=== PATIENT | female | born 1970 | race Caucasian/White ===

== ENCOUNTER 2017-03-30 17:58 | Emergency (ER) | payer BC | END 2017-03-30 19:15 | disposition left against medical advice (07) | LOC: UCCORT 17:58 | DX: M79.646 Pain in unspecified finger(s) (principal); M25.539 Pain in unspecified wrist; Z53.21 Procedure and treatment not carried out due to patient leaving prior to being seen by health care provider ==

== ENCOUNTER 2017-07-28 15:23 | Emergency (ER) | payer BC ==
--- NOTE | 2017-07-28 15:41 | UC ---
Abdominal Pain Female HPI - HPI Summary HPI Summary: Pt presents with 24 hours RLQ pain - states heavy pressure. Pt has not taken anything for pain second to medication allergies. Pt has applied heat without relief. Pt denies fever, chills, rash. Denies CP, SOB. Pt denies nausea, vomiting. No diarrhea. No dysuria, hematuria, flank pain, back pain. Pt is s/p ablation - no menses x 10 years. Pt is status post appendectomy and cholecystecomy. Pt states also had a hernia repair. Pt has had left sided ovarian cyst Pt's medications reviewed at this visit. - History of Current Complaint Chief Complaint: UCAbdominalPain Stated Complaint: RIGHT LOWER ABD PAIN Time Seen by Provider: 07/28/17 15:36 Hx Obtained From: Patient Hx Last Menstrual Period: ablation/no menses Location: Discrete At: RLQ Radiates: No Aggravating Factor(s): Nothing Alleviating Factor(s): Nothing Associated Signs and Symptoms: Negative: Fever, Cough, Chest Pain, Back Pain, Constipation, Urinary Symptoms, Vaginal Discharge, Nausea, Vomiting Allergies/Adverse Reactions: Allergies Allergy/AdvReac Type Severity Reaction Status Date / Time Buprenorphine [From Butrans] Allergy Severe N/V Verified 07/28/17 15:36 Hydrocodone [From Vicodin] Allergy Severe SEVERE Verified 07/28/17 15:36 VOMITING Ibuprofen Allergy Severe N/V Verified 07/28/17 15:36 Oxycodone [From Percocet] Allergy Severe N/V ITCHING Verified 07/28/17 15:36 Acetaminophen [From Vicodin] Allergy Intermediate N/V Verified 07/28/17 15:36 Fentanyl Allergy Intermediate N/V Verified 07/28/17 15:36 Morphine Allergy Intermediate SOB, RASH, Verified 07/28/17 15:36 N/V doxycyclene Allergy Severe N/V Uncoded 07/28/17 15:36 adhesives Allergy Rash Uncoded 07/28/17 15:36 Home Medications: Home Medications FLUoxetine CAP* [PROzac CAP*] 20 mg PO BEDTIME 07/28/17 [History Confirmed 07/28] PMH/Surg Hx/FS Hx/Imm Hx Previously Healthy: Yes Endocrine History: Thyroid Disease Other History Of: Negative For: HIV, Hepatitis B, Hepatitis C, Anticoagulant Therapy - Surgical History Surgical History: Yes Surgery Procedure, Year, and Place: 1981 APPENDECTOMY, ABSCESSES REMOVED- [place]. 04/1986 [place]. UTERINE ABLAtION. 1997 EXPLORATORY LAP, LYSIS OF ADHESIONS RIGHT FALLOPIAN TUBE- [facility]. 1997, 1998, 1999 RIGHT FOOT SURG- [facility] [place], TOE, BONE DROP 2ND AND 3RD TOES- [place] , level 3 fussion in neck. 2007 TUBAL LIGATION, UTERINE ABLAtION-[place]. 2005 CHOLECYSTECTOMY- [place]. 10/2010 RIGHT SHOULDER- [place], [place]. 08/2011 SPINAL FUSION C5-7- [facility]. 12/2012 LEFT SHOULDER- [facility], [place], pins and screws in place right foot - Family History Known Family History: Positive: Cardiac Disease, Hypertension, Diabetes Negative: Renal Disease - Social History Occupation: Employed Full-time Lives: With Family Alcohol Use: None Substance Use Type: None Smoking Status (MU): Heavy Every Day Tobacco Smoker Type: Cigarettes Amount Used/How Often: 1 ppd Length of Time of Smoking/Using Tobacco: 20+ Have You Smoked in the Last Year: Yes - Immunization History Most Recent Influenza Vaccination: 07/2017 Most Recent Tetanus Shot: about 2013 Review of Systems Constitutional: Negative Skin: Negative Eyes: Negative ENT: Negative Cardiovascular: Negative Gastrointestinal: Abdominal Pain Genitourinary: Negative Motor: Negative Neurovascular: Negative Musculoskeletal: Negative Neurological: Negative Psychological: Negative All Other Systems Reviewed And Are Negative: Yes Physical Exam Triage Information Reviewed: Yes Appearance: Well-Appearing, No Pain Distress, Well-Nourished Vital Signs: Initial Vital Signs Temp 98.0 F 07/28/17 15:31 Pulse 84 07/28/17 15:31 Resp 17 07/28/17 15:31 BP 130/77 07/28/17 15:31 Pulse Ox 100 07/28/17 15:31 Eye Exam: Normal Eyes: Positive: Conjunctiva Clear ENT Exam: Normal ENT: Positive: Normal ENT inspection, Hearing grossly normal, Pharynx normal, TMs normal Dental Exam: Normal Neck exam: Normal Neck: Positive: Supple, Nontender, No Lymphadenopathy Respiratory Exam: Normal Respiratory: Positive: Chest non-tender, Lungs clear, Normal breath sounds, No respiratory distress, No accessory muscle use Cardiovascular Exam: Normal Cardiovascular: Positive: RRR, No Murmur, Pulses Normal Abdomen Description: Positive: No Organomegaly, Soft, Other: - + RLQ discomfort with direct palp soft + BS no guarding, no rebound Bowel Sounds: Positive: Present Musculoskeletal Exam: Normal Musculoskeletal: Positive: Strength Intact, ROM Intact Neurological Exam: Normal Neurological: Positive: Alert Psychological Exam: Normal Psychological: Positive: Normal Response To Family Skin Exam: Normal Diagnostics - Radiology No standard instances Radiology Interpretation Completed By: Radiologist - INDICATION: Right lower quadrant pain. COMPARISON: Comparison is made with a prior pelvic ultrasound from January 06, 2010. TECHNIQUE: Multiple real-time transvaginal images of the pelvis were obtained. FINDINGS: The uterus is heterogeneous in echogenicity and normal in size and shape. The uterus measured 7.4 x 2.4 x 3.8 cm. The endometrial echo measured 0.3 cm in thickness. There are nabothian cysts present. There is a hypoechoic area in the posterior body of the uterus measuring 0.9 x 0.6 x 0.9 cm in size most consistent with a small leiomyoma. The right ovary measured 3.3 x 2.5 x 2.8 cm. The left ovary measured 2.0 x 1.9 x 1.4 cm. There is vascular flow within both ovaries. There are 2 slightly prominent cysts within the right ovary most consistent with physiologic cysts measuring 2.2 x 2.3 x 2.4 and 1.4 x 0.9 x 1.5 cm. There is a 1.0 x 0.8 x 0.7 cm cyst within the left ovary. No free intraperitoneal fluid is seen. IMPRESSION : 1. SMALL LEIOMYOMA. 2. BILATERAL OVARIAN CYSTS MOST CONSISTENT WITH PHYSIOLOGIC CYSTS. _ <Electronically signed by Petar Oswald MD in [place]> 07/28/171638 Dictated By : Petar Oswald MD Dictated Date/Time: 07/28/171638 Transcribed Date/Time: 163 Copy to: [ rep ct ivnm] [ rep ct add1] [ rep ct [facility] st zip] [ rep ct fax] Accession Number: [id number] CPT: 44892 INDICATION: Right lower quadrant pain. COMPARISON: Comparison is made with a prior pelvic ultrasound from January 06, 2010. TECHNIQUE: Multiple real-time transvaginal images of the pelvis were obtained. FINDINGS: The uterus is heterogeneous in echogenicity and normal in size and shape. The uterus measured 7.4 x 2.4 x 3.8 cm. The endometrial echo measured 0.3 cm in thickness. There are nabothian cysts present. There is a hypoechoic area in the posterior body of the uterus measuring 0.9 x 0.6 x 0.9 cm in size most consistent with a small leiomyoma. The right ovary measured 3.3 x 2.5 x 2.8 cm. The left ovary measured 2.0 x 1.9 x 1.4 cm. There is vascular flow within both ovaries. There are 2 slightly prominent cysts within the right ovary most consistent with physiologic cysts measuring 2.2 x 2.3 x 2.4 and 1.4 x 0.9 x 1.5 cm. There is a 1.0 x 0.8 x 0.7 cm cyst within the left ovary. No free intraperitoneal fluid is seen. IMPRESSION : 1. SMALL LEIOMYOMA. 2. BILATERAL OVARIAN CYSTS MOST CONSISTENT WITH PHYSIOLOGIC CYSTS. _ <Electronically signed by Petar Oswald MD in [place]> 07/28/17 1639 Dictated By : Petar Oswald MD Dictated Date/Time: 07/28/17 1639 Transcribed Date/Time: 1633 Copy to: [ rep ct ivnm] [ rep ct add1] [ rep ct [facility] st zip] [ rep ct fax] Re-Evaluation - Re-Evaluation First Eval Re-Evaluation Time: 16:45 Comment: reviewed ultrasound with pt. pt with cyst - ? cause of pain. d/w pt treatment option - will check CT - pt aware no contrast and limitation. If no acute process, pt has appt tomorrow with pcp for f/u Second Eval Change: Unchanged - reviewe CT with pt no clear cause for pain d/w pt - will dsicharge home pt has pcp appt tomorrow return precautions discussed Pt comfortable and wiley greement with plan Abd Pain Female Course/Dx - Course Course Of Treatment: Pt presents with RLQ pain x 24 hours. no fever, chills. dif includes appendicitis, UTI, hernia, ovarian cyst. Will check urine, US. If neg will consider noncontract CT for ? hernia. Pt in agreement with plan - Differential Dx/Diagnosis Provider Diagnoses: abdominal pain Discharge - Discharge Plan Condition: Stable Disposition: HOME Patient Education Materials: Abdominal Pain (ED) Referrals: CALLIE Lee [Primary Care Provider] - Additional Instructions: The doctor that examined you today did not find a clear cause for your abdominal pain. the doctor thinks it is okay for your to go home. Keep your appointment as scheduled tomorrow with your doctor if you develop fevers, vomiting, uncontrolled pain or any other symptoms - it is recommended you go directly to the emergency department
--- NOTE | 2017-07-28 16:43 | RAD ---
INDICATION: Right lower quadrant pain. COMPARISON: Comparison is made with a prior pelvic ultrasound from January 06, 2010. TECHNIQUE: Multiple real-time transvaginal images of the pelvis were obtained. FINDINGS: The uterus is heterogeneous in echogenicity and normal in size and shape. The uterus measured 7.4 x 2.4 x 3.8 cm. The endometrial echo measured 0.3 cm in thickness. There are nabothian cysts present. There is a hypoechoic area in the posterior body of the uterus measuring 0.9 x 0.6 x 0.9 cm in size most consistent with a small leiomyoma. The right ovary measured 3.3 x 2.5 x 2.8 cm. The left ovary measured 2.0 x 1.9 x 1.4 cm. There is vascular flow within both ovaries. There are 2 slightly prominent cysts within the right ovary most consistent with physiologic cysts measuring 2.2 x 2.3 x 2.4 and 1.4 x 0.9 x 1.5 cm. There is a 1.0 x 0.8 x 0.7 cm cyst within the left ovary. No free intraperitoneal fluid is seen. IMPRESSION: 1. SMALL LEIOMYOMA. 2. BILATERAL OVARIAN CYSTS MOST CONSISTENT WITH PHYSIOLOGIC CYSTS.
--- NOTE | 2017-07-28 17:30 | RAD ---
INDICATION: Right lower quadrant pain, history of prior appendectomy. COMPARISON: Comparison is made with a prior CT of the abdomen and pelvis from March 05, 2012 and a prior pelvic ultrasound from July 28, 2017. TECHNIQUE: A CT scan of the abdomen and pelvis was performed without intravenous or oral contrast. Contiguous axial sections were obtained from the lung bases through the symphysis pubis. Images were reconstructed in the coronal and sagittal planes. FINDINGS: The lung bases are clear. No pleural effusion is present. The liver and spleen are normal in size without significant focal abnormality on this noncontrast study. The patient is status post cholecystectomy. The pancreas is normal in size. No ductal distention is seen. There is a small 6 x 3 mm hypodense area which is noted to be fatty density on the prior study suggestive of a lipoma which is unchanged. The adrenal glands and kidneys are normal in size. No renal calculi or hydronephrosis is seen. The aorta is normal in caliber without significant calcific plaque. No significant enlarged retroperitoneal lymph nodes are seen. The stomach, small and large bowel appear nondistended. The patient is status post appendectomy by history. There are a few scattered diverticuli within the sigmoid colon. There is no evidence for diverticulitis or colitis. No hernia is seen. The uterus is anteverted and normal in size. There is a 2.2 cm right ovarian cyst. No free intraperitoneal air or fluid is seen. No significant focal osseous abnormality is seen. IMPRESSION: 1. NO EVIDENCE FOR ACUTE FINDING OR CAUSE FOR THE PATIENT'S ABDOMINAL PAIN IS SEEN. 2. STATUS POST CHOLECYSTECTOMY AND APPENDECTOMY.
[2017-07-28 17:33] VITALS: BP 126/76
== END 2017-07-28 17:51 | disposition home or self-care (01) ==
LOC: UCCORT 15:23
DX: R10.31 Right lower quadrant pain (principal); Z88.5 Allergy status to narcotic agent; F17.210 Nicotine dependence, cigarettes, uncomplicated
CPT/HCPCS: 74176; 76830; 81003; 87086; 99212; G0463

== ENCOUNTER 2017-11-02 16:40 | Emergency (ER) | payer BC ==
--- NOTE | 2017-11-02 17:21 | UC ---
Throat Pain/Nasal Beny HPI - HPI Summary HPI Summary: 46 year old female presents with complains of fever, headache, and sore throat. - History of Current Complaint Chief Complaint: UCRespiratory Stated Complaint: COUGH,ST,DUEÑAS,EARS Time Seen by Provider: 11/02/17 17:21 Hx Obtained From: Patient Hx Last Menstrual Period: ablation/no menses Onset/Duration: Sudden Onset Severity: Moderate Cough: Productive Associated Signs & Symptoms: Positive: Dysphagia, Wheezing Related History: Seasonal Allergies - Allergies/Home Medications Allergies/Adverse Reactions: Allergies Allergy/AdvReac Type Severity Reaction Status Date / Time Buprenorphine [From Butrans] Allergy Severe N/V Verified 11/02/17 17:22 Hydrocodone [From Vicodin] Allergy Severe SEVERE Verified 11/02/17 17:22 VOMITING Ibuprofen Allergy Severe N/V Verified 11/02/17 17:22 Oxycodone [From Percocet] Allergy Severe N/V ITCHING Verified 11/02/17 17:22 Acetaminophen [From Vicodin] Allergy Intermediate N/V Verified 11/02/17 17:22 Fentanyl Allergy Intermediate N/V Verified 11/02/17 17:22 Morphine Allergy Intermediate SOB, RASH, Verified 11/02/17 17:22 N/V doxycyclene Allergy Severe N/V Uncoded 11/02/17 17:22 adhesives Allergy Rash Uncoded 11/02/17 17:22 PMH/Surg Hx/FS Hx/Imm Hx Previously Healthy: Yes Other History Of: Negative For: HIV, Hepatitis B, Hepatitis C, Anticoagulant Therapy - Surgical History Surgical History: Yes Surgery Procedure, Year, and Place: 1981 APPENDECTOMY, ABSCESSES REMOVED- [place]. 04/1986 - [place]. UTERINE ABLAtION. 1997 EXPLORATORY LAP, LYSIS OF ADHESIONS RIGHT FALLOPIAN TUBE- [facility]. 1997, 1998, 1999 RIGHT FOOT SURG- [facility] [place], TOE, BONE DROP 2ND AND 3RD TOES- [place] , level 3 fussion in neck. 2007 TUBAL LIGATION, UTERINE ABLAtION-[place]. 2005 CHOLECYSTECTOMY- [place] 10/2010 RIGHT SHOULDER- [facility], [place]. 08/2011 SPINAL FUSION C5-7- [facility]. 12/2012 LEFT SHOULDER- [facility], [place], pins and screws in place right foot - Family History Known Family History: Positive: Cardiac Disease, Hypertension, Diabetes Negative: Renal Disease - Social History Alcohol Use: None Substance Use Type: None Smoking Status (MU): Heavy Every Day Tobacco Smoker Type: Cigarettes Amount Used/How Often: 1 ppd Length of Time of Smoking/Using Tobacco: 20+ Have You Smoked in the Last Year: Yes - Immunization History Most Recent Influenza Vaccination: 07/2017 Most Recent Tetanus Shot: about 2013 Review of Systems Constitutional: Negative Skin: Negative Eyes: Negative ENT: Nasal Discharge, Sinus Congestion, Sinus Pain/Tenderness Respiratory: Negative, Cough Cardiovascular: Negative Gastrointestinal: Negative Genitourinary: Negative Motor: Negative Neurovascular: Negative Musculoskeletal: Negative Neurological: Negative Psychological: Negative All Other Systems Reviewed And Are Negative: Yes Physical Exam Triage Information Reviewed: Yes Vital Signs Reviewed: Yes Eye Exam: Normal ENT: Positive: Pharyngeal erythema, Nasal congestion, Nasal drainage, Sinus tenderness Dental Exam: Normal Neck exam: Normal Neck: Positive: 1 Respiratory: Positive: Rhonchi, Wheezing Cardiovascular Exam: Normal Abdominal Exam: Normal Musculoskeletal Exam: Normal Neurological Exam: Normal Psychological Exam: Normal Skin Exam: Normal Throat Pain/Nasal Course/Dx - Differential Dx/Diagnosis Provider Diagnoses: bronchitis Discharge - Discharge Plan Condition: Stable Disposition: HOME Prescriptions: Albuterol HFA INHALER* [Ventolin HFA Inhaler*] 1 puff INH Q6H PRN #1 mdi PRN Reason: Wheezing Azithromyxin ARLIN (NF) [Z-Arlin (Zithromax) 250 mg tabs #6] 2 tab PO .TODAY, THEN 1 DAILY #6 tab GuaiFENesin DM sugar free* [Robitussin DM sugar free*] 5 ml PO Q8H PRN #120 ml PRN Reason: Cough LoraTADine TAB(NF) [Claritin 10 MG TAB(NF)] 10 mg PO DAILY #30 tab Methylprednisolone [Medrol Dosepak 4 MG*] 4 mg PO .SEE ARLIN INSTRUCTION #21 tab Patient Education Materials: Acute Bronchitis (ED), Bronchospasm (ED) Forms: *Work Release Referrals: CALLIE Lee [Primary Care Provider] -
[2017-11-02 17:28] VITALS: BP 120/66
== END 2017-11-02 17:54 | disposition home or self-care (01) ==
LOC: UCCORT 16:40
DX: J40 Bronchitis, not specified as acute or chronic (principal); R51 Headache; Z88.8 Allergy status to other drugs, medicaments and biological substances; Z88.5 Allergy status to narcotic agent; Z88.6 Allergy status to analgesic agent; F17.210 Nicotine dependence, cigarettes, uncomplicated
CPT/HCPCS: 99212; G0463

== ENCOUNTER 2018-06-10 16:13 | Emergency (ER) | payer BC ==
[2018-06-10 16:49] VITALS: BP 121/77
--- NOTE | 2018-06-10 17:04 | UC ---
Knee Pain HPI - HPI Summary HPI Summary: 47 y/o female presents to the urgent care c/o R knee pain since January/2018 with no injury or trauma. She was seen at [facility] at that time and was Dx with R knee sprain. She had knee immobilized w/ Don-bandage for a week, but no improvement of symptom. Pain has worsen w/ time. Pain today is 8/10 specially w / walking, climbing stair and when she wakes up, localized on around knee cap w / mild swelling. She would like to see an mortgage specialist. Pt denies fever, numbness or tingling sensation, calf pain, SOB, chest pain, N/V/D. Pt w/ Hx of uterine ablation - History of Current Complaint Chief Complaint: UCLowerExtremity Stated Complaint: RIGHT KNEE PAIN Hx Obtained From: Patient Hx Last Menstrual Period: pt states not getting one d/t having an ablasion [id number] ?: No Onset/Duration: Gradual Onset, Lasting Weeks - since 01/2018 Severity Initially: Moderate Severity Currently: Moderate Pain Intensity: 8 Pain Scale Used: 0-10 Numeric Character: Sharp, Aching, Throbbing Aggravating Factor(s): Movement, Prolonged Standing Alleviating Factor(s): Rest, OTC Meds Associated Signs And Symptoms: Positive: Swelling - mild. Negative: Redness, Bruising, Fever, Weakness, Numbness, Tingling Able to Bear Weight: Yes - Risk Factors Septic Arthritis Risk Factor: Negative Gout Risk Factor: Negative - Allergies/Home Medications Allergies/Adverse Reactions: Allergies Allergy/AdvReac Type Severity Reaction Status Date / Time acetaminophen [From Vicodin] Allergy Vomiting Verified 06/10/18 16:56 buprenorphine Allergy Nausea And Verified 06/10/18 16:56 Vomiting doxycycline Allergy Nausea And Verified 06/10/18 16:56 Vomiting fentanyl Allergy Nausea And Verified 06/10/18 16:56 Vomiting hydrocodone [From Vicodin] Allergy Vomiting Verified 06/10/18 16:56 ibuprofen Allergy Nausea And Verified 06/10/18 16:56 Vomiting morphine Allergy Shortness Verified 06/10/18 16:57 of Breath oxycodone [From Percocet] Allergy Nausea And Verified 06/10/18 16:56 Vomiting Home Medications: Home Medications Aspirin TAB* [Aspirin 325 MG TAB*] 325 mg PO DAILY 06/10/18 [History Confirmed 06/10/18] PMH/Surg Hx/FS Hx/Imm Hx Previously Healthy: Yes Endocrine History: Hypothyroidism Cardiovascular History: Hypertension Psychological History: Anxiety, Depression Other History Of: Negative For: HIV, Hepatitis B, Hepatitis C, Anticoagulant Therapy - Surgical History Surgical History: Yes Surgery Procedure, Year, and Place: 1981 APPENDECTOMY, ABSCESSES REMOVED- [place]. 04/1986 - [place]. UTERINE ABLAtION. 1997 EXPLORATORY LAP, LYSIS OF ADHESIONS RIGHT FALLOPIAN TUBE- [facility]. 1997, 1998, 1999 RIGHT FOOT SURG- [facility], TOE, BONE DROP 2ND AND 3RD TOES- [place] , level 3 fussion in neck. 2007 TUBAL LIGATION, UTERINE ABLAtION-[place]. 2005 CHOLECYSTECTOMY- [place]. 10/2010 RIGHT SHOULDER- [place], [place]. 08/2011 SPINAL FUSION C5-7- [facility]. 12/2012 LEFT SHOULDER- [place], [place], pins and screws in place right foot - Family History Known Family History: Positive: Cardiac Disease, Hypertension, Diabetes Negative: Renal Disease - Social History Occupation: Employed Full-time Lives: With Family Alcohol Use: Rare Substance Use Type: None Smoking Status (MU): Heavy Every Day Tobacco Smoker Type: Cigarettes Amount Used/How Often: 1 ppd Length of Time of Smoking/Using Tobacco: since age 16 Have You Smoked in the Last Year: Yes - Immunization History Most Recent Influenza Vaccination: 07/2017 Most Recent Tetanus Shot: about 2013 Review of Systems Constitutional: Negative Skin: Negative Eyes: Negative ENT: Negative Respiratory: Negative Cardiovascular: Negative Gastrointestinal: Negative Genitourinary: Negative Motor: Negative Neurovascular: Negative Musculoskeletal: Decreased ROM - RT knee, Other: - RT knee pain Neurological: Negative Psychological: Negative Is Patient Immunocompromised?: No All Other Systems Reviewed And Are Negative: Yes Physical Exam - Summary Physical Exam Summary: Vital Signs Reviewed: Yes General: well developed, well nourished female sitting in the examining table w/ o any apparent distress Eyes: Positive: Conjunctiva Clear - PERRLA, EOMI, fundi grossly normal ENT: Positive: Normal ENT inspection, Hearing grossly normal, Pharynx normal, TMs normal Neck: Positive: Supple, Nontender, No Lymphadenopathy Respiratory: Positive: Chest nontender, Lungs clear, Normal breath sounds, No respiratory distress Cardiovascular: Positive: RRR, No Murmur, Pulses Normal, Brisk Capillary Refill Abdomen Description: Positive: Nontender, No Organomegaly, Soft. Negative: CVA Tenderness (R), CVA Tenderness (L) Bowel Sounds: Positive: Present Musculoskeletal: Positive: Strength Intact, No Edema, RT Knee: Pt is able to bear weight and ambulate w/o limping. No surface trauma, soft tissue swelling, or obvious effusion. No overlying erythema or warmth. The R knee is without obvious asymmetry or deformity when compared with the L knee. Decreased ROM of RT knee due to pain. Point tenderness to palpation of the patella, no effusion or ballottement. No tenderness over the infrapatellar tendon. Point tenderness over the lateral joint line, No tenderness over the medial or lateral tibial plateaus. No tenderness over the proximal fibular head, No tenderness, fullness or mass of the popliteal fossa. No quadriceps tenderness. No laxity of the ACL. PCL, MCL, or LCL. no collateral ligament laxity to valgus or varus stress. Negative Bobby/Drawer sign. Negative Giovanny. Distal motor and neurovascular status intact. Neurological Exam: Normal Psychological Exam: Normal Skin Exam: Normal Triage Information Reviewed: Yes Vital Signs: Initial Vital Signs Temp 99.1 F 06/10/18 16:42 Pulse 84 06/10/18 16:42 Resp 16 06/10/18 16:42 BP 121/77 06/10/18 16:42 Pulse Ox 98 06/10/18 16:42 Knee Pain Course/Dx - Course Course Of Treatment: 47 y/o female presents to the urgent care c/o R knee pain since January/2018 with no injury or trauma. She was seen at [facility] at that time and was Dx with R knee sprain. She had knee immobilized w/ Don-bandage for a week, but no improvement of symptom. Pain has worsen w/ time. Pain today is 8/10 specially w/ walking, climbing stair and when she wakes up, localized on around knee cap w/ mild swelling. She would like to see an mortgage specialist. Pt denies fever, numbness or tingling sensation, calf pain, SOB, chest pain, N/V/D. Pt w/ Hx of uterine ablation. Hx obtained. LF knee X-ray ordered. Impression:No acute osseous injury. Pt's knee immobilized w/ don bandage and continue using crutches for 1 week.Advised RICE. Avoid strenuous exercise or standing for long period of time. No Volleyball practice for 1 week. and if not improvement of symptoms to f/u with Orthopedic Dr Guzmán or your PCP in 1 week for further evaluation and treatment. Mother and PT understood and agreed with D/C instructions. - Differential Dx/Diagnosis Differential Diagnosis/HQI/PQRI: Bursitis, Fracture (Closed), Patellofemoral Syndrome, Sprain, Strain, Tendonitis Provider Diagnoses: 1- Rt knee pain. 2- Discharge - Discharge Plan Condition: Stable Disposition: HOME Referrals: Letitia Browne MD [Primary Care Provider] - Additional Instructions: 1-Please take medications as directed to alleviate pain and swelling. 2-Please apply ice, keep your knee immobilized with the splint. 3- Please f/u with Orthopedic or your PCP in 1 week is not improvement of symptoms for further evaluation and treatment. - Billing Disposition and Condition Condition: STABLE Disposition: Home
--- NOTE | 2018-06-10 17:56 | RAD ---
Indication: RIGHT knee calf pain since January without injury. Comparison: None. Technique: RIGHT knee: AP, tunnel, lateral, sunrise views. Report: Minimal osteophytosis at the patellofemoral joint. Negative for significant joint space narrowing. Negative for joint effusion, fracture, or malalignment. Unremarkable soft tissue contours accounting for body habitus. IMPRESSION: #. Mild patellofemoral joint osteoarthritis.
== END 2018-06-10 18:19 | disposition home or self-care (01) ==
LOC: UCCORT 16:13
DX: M25.561 Pain in right knee (principal); Z88.6 Allergy status to analgesic agent; Z88.5 Allergy status to narcotic agent; F17.210 Nicotine dependence, cigarettes, uncomplicated; Z88.4 Allergy status to anesthetic agent
CPT/HCPCS: 99211; G0463

== ENCOUNTER 2019-03-02 09:39 | Emergency (ER) | payer BC ==
[2019-03-02 10:13] VITALS: BP 124/71
--- NOTE | 2019-03-02 10:43 | UC ---
Respiratory Complaint HPI - HPI Summary HPI Summary: Pt presents with c/o generalized malaise, cough, St, sinus congestion, pressure , bilateral ear ache X 2 weeks. - History of Current Complaint Chief Complaint: UCGeneralIllness Stated Complaint: COUGH,ST,CONGESTION Time Seen by Provider: 03/02/19 10:36 Hx Obtained From: Patient Hx Last Menstrual Period: Ablation ?: No Onset/Duration: Gradual Onset, Lasting Weeks, Still Present Timing: Constant Severity Initially: Mild Severity Currently: Moderate Pain Intensity: 0 Character: Cough: Nonproductive Aggravating Factors: Deep Breaths, Recumbent Position Alleviating Factors: Nothing Associated Signs And Symptoms: Positive: Wheezing, URI, Nasal Congestion - Risk Factors Pulmonary Embolism Risk Factors: Negative Cardiac Risk Factors: Negative Pseudomonas Risk Factors: Negative Tuberculosis Risk Factors: Smoking - Allergies/Home Medications Allergies/Adverse Reactions: Allergies Allergy/AdvReac Type Severity Reaction Status Date / Time acetaminophen [From Vicodin] Allergy Vomiting Verified 06/10/18 16:56 buprenorphine Allergy Nausea And Verified 06/10/18 16:56 Vomiting doxycycline Allergy Nausea And Verified 06/10/18 16:56 Vomiting fentanyl Allergy Nausea And Verified 06/10/18 16:56 Vomiting hydrocodone [From Vicodin] Allergy Vomiting Verified 06/10/18 16:56 ibuprofen Allergy Nausea And Verified 06/10/18 16:56 Vomiting morphine Allergy Shortness Verified 06/10/18 16:57 of Breath oxycodone [From Percocet] Allergy Nausea And Verified 06/10/18 16:56 Vomiting Home Medications: Home Medications Multivitamin/Iron/Folic Acid [Centrum Adults Tablet] 1 each PO DAILY 03/02/19 [ History Confirmed 03/02/19] PMH/Surg Hx/FS Hx/Imm Hx Previously Healthy: Yes Respiratory History: Bronchitis Other History Of: Negative For: HIV, Hepatitis B, Hepatitis C, Anticoagulant Therapy - Surgical History Surgical History: Yes Surgery Procedure, Year, and Place: 1981 APPENDECTOMY, ABSCESSES REMOVED- [place]. 04/1986 [place]. UTERINE ABLAtION. 1997 EXPLORATORY LAP, LYSIS OF ADHESIONS RIGHT FALLOPIAN TUBE- [facility]. 1997, 1998, 1999 RIGHT FOOT SURG- [facility], TOE, BONE DROP 2ND AND 3RD TOES- [place] , level 3 fussion in neck. 2007 TUBAL LIGATION, UTERINE ABLAtION-[place]. 2005 CHOLECYSTECTOMY- [place]. 10/2010 RIGHT SHOULDER- [facility], [place]. 08/2011 SPINAL FUSION C5-7- [facility]. 12/2012 LEFT SHOULDER- [facility], [place], pins and screws in place right foot - Family History Known Family History: Positive: Cardiac Disease, Hypertension, Diabetes Negative: Renal Disease - Social History Occupation: Employed Full-time Lives: With Family Alcohol Use: Rare Substance Use Type: None Smoking Status (MU): Heavy Every Day Tobacco Smoker Type: Cigarettes Amount Used/How Often: 1 ppd Length of Time of Smoking/Using Tobacco: since age 16 Have You Smoked in the Last Year: Yes - Immunization History Most Recent Influenza Vaccination: 07/2017 Most Recent Tetanus Shot: about 2013 Vaccination Up to Date: Yes Review of Systems All Other Systems Reviewed And Are Negative: Yes Constitutional: Positive: Chills, Fatigue Skin: Positive: Negative Eyes: Positive: Negative ENT: Positive: Sore Throat, Ear Ache, Sinus Congestion, Sinus Pain/Tenderness Respiratory: Positive: Cough Cardiovascular: Positive: Negative Gastrointestinal: Positive: Negative Genitourinary: Positive: Negative Motor: Positive: Negative Neurovascular: Positive: Negative Musculoskeletal: Positive: Negative Neurological: Positive: Headache Psychological: Positive: Negative Is Patient Immunocompromised?: No Physical Exam Triage Information Reviewed: Yes Appearance: Ill-Appearing Vital Signs: Initial Vital Signs Temp 98.2 F 03/02/19 10:06 Pulse 82 03/02/19 10:06 Resp 16 03/02/19 10:06 BP 124/71 03/02/19 10:06 Pulse Ox 98 03/02/19 10:06 Vital Signs Reviewed: Yes Eye Exam: Normal ENT: Positive: Pharyngeal erythema, Nasal congestion, Nasal drainage, TM bulging Dental Exam: Normal Neck exam: Normal Respiratory Exam: Normal Cardiovascular Exam: Normal Musculoskeletal Exam: Normal Neurological Exam: Normal Psychological Exam: Normal Skin Exam: Normal Respiratory Course/Dx - Differential Dx/Diagnosis Differential Diagnosis/HQI/PQRI: Bronchitis, Influenza Provider Diagnosis: Bronchitis Discharge - Sign-Out/Discharge Documenting (check all that apply): Patient Departure All imaging exams completed and their final reports reviewed: No Studies - Discharge Plan Condition: Stable Disposition: HOME Prescriptions: Azithromycin TAB* [Zithromax TAB (Z-ARLIN) 250 mg #6 tabs] 2 tab PO .TODAY, THEN 1 DAILY #1 arlin Fexofenadine/Pseudoephedrine [Elsy-D 24 Hour Tablet] 1 each PO DAILY #10 tab.er.24h predniSONE TAB* [Deltasone 10 MG TAB*] 30 mg PO DAILY #12 tab Patient Education Materials: Acute Bronchitis (ED) Referrals: Letitia Browne MD [Primary Care Provider] - If Needed - Billing Disposition and Condition Condition: STABLE Disposition: Home
== END 2019-03-02 10:50 | disposition home or self-care (01) ==
LOC: UCCORT 09:39
DX: J40 Bronchitis, not specified as acute or chronic (principal); R09.81 Nasal congestion; H92.03 Otalgia, bilateral; R05 Cough; Z88.8 Allergy status to other drugs, medicaments and biological substances; Z88.5 Allergy status to narcotic agent; Z87.891 Personal history of nicotine dependence
CPT/HCPCS: 99212; G0463